=== PATIENT | male | born 1960 | race Caucasian/White ===

== ENCOUNTER 2016-04-14 21:27 | Emergency (ER) | payer MEDICAID, OTHER ==
[2016-04-14 21:39] LABS: % IMMATURE GRANULYOCYTES 0.4 % (0.0-1.1); ABSOLUTE IMMATURE GRANULOCYTES 0.03 10^3/uL (0.00-0.10); ADD DIFF? NO; ADD MORPH? NO; ADD SCAN? NO; ATYPICAL LYMPHOCYTE FLAG 10 (0-99); FRAGMENT RBC FLAG 0 (0-99); HEMATOCRIT 42.5 % (40.0-51.0); HEMOGLOBIN 14.6 g/dL (13.7-17.5); LEFT SHIFT FLG 0 (0-99); LIPEMIA HEMOLYSIS FLAG 90 (0-99); MEAN CELL HEMOGLOBIN 33.4 pg (27.9-34.1); MEAN CELL HEMOGLOBIN CONCENTR. 34.4 g/dL (32.4-36.7); MEAN CELL VOLUME 97.3 fL (81.5-99.8); MEAN PLATELET VOLUME 9.3 fL (8.7-11.7); PLATELET CLUMPS FLAG 0 (0-99); PLATELET COUNT 246 10^3/uL (150-400); RED BLOOD CELL COUNT 4.37 10^6/uL (4.40-6.38); RED CELL DISTRIBUTION WIDTH 12.7 % (11.5-15.2)
--- NOTE | 2016-04-14 21:44 | CPEKG ---
Heart Rate: 85 RR Interval: 706 P-R Interval: 176 QRSD Interval: 100 QT Interval: 392 QTC Interval: 467 P [place]: 60 QRS [place]: -21 T Wave [place]: 26 EKG Severity - OTHERWISE NORMAL ECG - EKG Impression: SINUS RHYTHM EKG Impression: BORDERLINE LEFT AXIS DEVIATION Electronically Signed By: Xi Singh 14-Apr-2016 22:03:24
[2016-04-14 21:46] LABS: INR 0.91 (0.83-1.16); PROTIME(PATIENT) 12.2 SEC (12.0-15.0)
--- NOTE | 2016-04-14 21:56 | EDPHY ---
H & P HPI/ROS: CHIEF COMPLAINT: altered mental status HISTORY OF PRESENT ILLNESS: Patient is a 56-year-old male who comes to the emergency department via EMS. Per report the patient showed up to the [facility] intoxicated. Staff at the [facility] told EMS that his alcohol was in the to 200s, and that he wasn't too drunk. While there he took a fall landing backwards. He did not lose consciousness. He then laid down and was subsequently on arousable. Did not note any signs of trauma. There is no bleeding. EMS found the patient altered with minimal response. They placed a nasal trumpet with no reaction. Sugar was normal. REVIEW OF SYSTEMS: Review of systems was unobtainable due to the patient's altered mental status Past Medical/Surgical History: Includes alcohol abuse. Otherwise limited due to altered mental status Social History: unobtainable due to the patient's altered mental status Physical Exam: Vitals noted GENERAL: No acute distress, eyes closed, laying on program. HEAD: No evidence of trauma. No hematoma. EYES: Pupils eyes are mid size and symmetric bilaterally. Minimally reactive. No injected conjunctiva. Normal to inspection. ENT: patient has a minimal gag reflex with bite stick. Airway intact, no dental or oral injury, no hemotympanum, normal external examination. And PA in place NECK: The trachea is midline. There is no crepitus. The C-spine has no step- offs or irregularity. No obvious tenderness palpation as patient is unresponsive RESPIRATORY: Clear to auscultation bilaterally, no rales, rhonchi or wheezing. No visible trauma. CVS: Regular rate and rhythm, no rubs, murmurs, or gallops. ABDOMEN: Soft, nondistended, does not appear tender but with altered mental status as above, no bruising or abrasions. Pelvis: Stable. No tenderness palpation. Hips full range of motion. GENITAL/RECTAL: Normal external exam. No bleeding. BACK: Normal to inspection, no spinal tenderness, no spinal step off, no notable bruising or abrasions. SKIN: Normal color, warm, dry. No pallor or diaphoresis. EXTREMITIES: Extremities appear atraumatic. No visible signs of trauma. Normal pulses in all extremities. NEURO/PSYCH: Eyes closed. Not responsive to voice or deep palpation. Normal mood and affect, normal motor sensory exam. Constitutional: Initial Vital Signs O2 Sat (%) 94 04/14/16 21:30 O2 Delivery Mode Nasal Cannula O2 (L/minute) 2 Allergies/Adverse Reactions: Unable to Assess Allergy (Unverified 04/14/16 21:29) Home Medications: Medication Instructions Recorded Atorvastatin Calcium 04/14/16 Citalopram 04/14/16 Lisinopril 04/14/16 Metformin HCl 04/14/16 Pioglitazone HCl 04/14/16 Medical Decision Making ED Course/Re-evaluation: I met EMS on arrival. I took report from the paramedic rn. On my initial evaluation patient did have a slight gag reflex. I felt his symptoms were likely secondary to alcohol intoxication. Because of this I did not intubate him. EKG shows normal sinus rhythm, normal rate, normal axis, normal intervals. There are no ST or T-wave abnormalities. EKG is normal as interpreted by me. Head CT/C-spine CT: Please refer the dictated report by Dr. Kearney. The patient has no acute intracranial pathology. The patient's C-spine is negative. Please refer to his dictated report. 2215: The patient has minimal gag reflex. He still is unresponsive to painful stimulus. No other change in his exam. Vital signs are stable. 2300: Patient is signed out at change of shift to Dr. Geiger. Differential Diagnosis: My differential includes but is not limited to alcohol intoxication, subarachnoid hemorrhage, subdural hematoma, epidural hematoma, skull fracture, electrolyte abnormality, sugar abnormality, dehydration, ACS, acute NC, bacteremia, sepsis In the emergency department the patient's CT imaging was negative. He was found to have an alcohol greater than 500. I feel the patient's altered mental status is likely secondary to his alcohol intoxication rather than to a traumatic event. - Data Points Laboratory Results: Laboratory Results 04/14/16 21:30 04/14/16 21:30 04/14/16 21:30 WBC 7.68 10^3/uL (3.80-9.50) RBC 4.37 L 10^6/uL (4.40-6.38) Hgb 14.6 g/dL (13.7-17.5) Hct 42.5 % (40.0-51.0) MCV 97.3 fL (81.5-99.8) MCH 33.4 pg (27.9-34.1) MCHC 34.4 g/dL (32.4-36.7) RDW 12.7 % (11.5-15.2) Plt Count 246 10^3/uL (150-400) MPV 9.3 fL (8.7-11.7) Neut % (Auto) 53.3 % (39.3-74.2) Lymph % (Auto) 32.2 % (15.0-45.0) [place] % (Auto) 12.6 % (4.5-13.0) Eos % (Auto) 1.2 % (0.6-7.6) Baso % (Auto) 0.3 % (0.3-1.7) Nucleat RBC Rel Count 0.0 % (0.0-0.2) Absolute Neuts (auto) 4.10 10^3/uL (1.70-6.50) Absolute Lymphs (auto) 2.47 10^3/uL (1.00-3.00) Absolute Monos (auto) 0.97 H 10^3/uL (0.30-0.80) Absolute Eos (auto) 0.09 10^3/uL (0.03-0.40) Absolute Basos (auto) 0.02 10^3/uL (0.02-0.10) Absolute Nucleated RBC 0.00 10^3/uL (0-0.01) Immature Gran % 0.4 % (0.0-1.1) Immature Gran # 0.03 10^3/uL (0.00-0.10) PT 12.2 SEC (12.0-15.0) INR 0.91 (0.83-1.16) APTT 28.0 SEC (23.0-38.0) Sodium 148 H mEq/L (134-144) Potassium 3.6 mEq/L (3.5-5.2) Chloride 103 mEq/L (97-110) Carbon Dioxide 24 mEq/l (22-31) Anion Gap 21 mEq/L (8-16) BUN 8 mg/dL (7-23) Creatinine 0.7 mg/dL (0.7-1.3) Estimated GFR > 60 Glucose 153 H mg/dL (70-100) Calcium 9.1 mg/dL (8.5-10.4) Ethyl Alcohol 525 H* mg/dL (0-10) Departure - Departure Disposition: Home, Routine, Self-Care Clinical Impression: Altered mental status Qualifiers: Altered mental status type: stupor Qualifier Code: (R40.1) Stupor Alcohol intoxication Qualifiers: Complication of substance-induced condition: with unspecified complication Qualifier Code: (F10.129) Alcohol abuse with intoxication, unspecified Condition: Good Instructions: Alcohol Intoxication (ED) Additional Instructions: Slowly reduce your alcohol intake. Return with worsening headache, neck pain, weakness, numbness or any other concerns. Referrals: [facility] [Outside] - 5-7 days, call for appt.
[2016-04-14 22:03] LABS: ANION GAP 21 mEq/L (8-16); CALCIUM 9.1 mg/dL (8.5-10.4); CARBON DIOXIDE 24 mEq/l (22-31); CHLORIDE 103 mEq/L (97-110); CREATININE 0.7 mg/dL (0.7-1.3); GLOMERULAR FILTRATION RATE > 60; GLUCOSE 153 mg/dL (70-100); POTASSIUM 3.6 mEq/L (3.5-5.2); SODIUM 148 mEq/L (134-144)
[2016-04-14 22:26] LABS: ETHANOL SERUM 525 mg/dL (0-10)
--- NOTE | 2016-04-14 22:26 | CT ---
CT Brain (Without Contrast) on April 14, 2016 at 2140 hours History: Mental status change. Comparison: None. Technique: Axial computed tomographic images of the brain without contrast. Dose reduction techniques were utilized. Findings: Ventricles, cisterns, and sulci are widened consistent with atrophy. No hydrocephalus, mid line shift/herniation, or epidural/subdural hematomas. No acute intraparenchymal hemorrhage or mass e ffect. Cerebrovascular atherosclerosis. Hypodensities in the white matter of bilateral cerebral hemis pheres. Bone windows demonstrate no displaced fractures. There is a nasal intubation. Minimal mucosal thickening is present in the maxillary sinuses inferiorly. Impression: 1. Moderate atrophy. 2. No acute hemorrhage, hydrocephalus, or mass effect. 3. Cerebrovascular atherosclerosis. 4. No definite acute infarct. 5. Moderate microvascular ischemic disease. Critical results were relayed by Dr. Kearney to Dr. Singh on April 14, 2016 at 2212 hours.
--- NOTE | 2016-04-14 22:30 | CT ---
CT Scan of the Cervical Spine (Without Contrast) Clinical Indications: Acute mental status. Technique: Thinly collimated multidetector helical CT imaging of the cervical spine was reviewed in multiple planes. Dose reduction techniques were utilized. Findings: No fractures are found. The spinal canal is adequate in size. No evidence of herniated d isk or hematoma. Multilevel degenerative changes are present with some mild bony spurring. A nasal t rumpet is noted. Impression: No evidence of fracture. Critical results were relayed by Dr. Kearney to Dr. Singh on April 14, 2016 at 2220 hours.
[2016-04-15 02:29] VITALS: TEMP 98.6
[2016-04-15 05:45] VITALS: BP 120/78; PULSE 97; RESP 16; O2SAT 92
== END 2016-04-15 06:03 | disposition home or self-care (01) ==
LOC: EDUNIT#
DX: F10.129 Alcohol abuse with intoxication, unspecified (principal); R40.1 Stupor
CPT/HCPCS: G0480